=== PATIENT | male | born 1985 | race Caucasian/White ===

== ENCOUNTER 2019-09-28 15:47 | Emergency (ER) | payer SELFPAY ==
[~2019-09-28] VITALS: Ht 180 cm; Wt 106.8 kg
[2019-09-28] MEDS ORDERED: METF-478 PO (16:00)
[2019-09-28] MEDS ORDERED: ESOM20CA PO (16:00)
[2019-09-28] MEDS ORDERED: SULF-222 PO (16:15)
--- NOTE | 2019-09-28 16:15 | ED Integumentary General ---
General Chief Complaint: Skin/Wound Problems Stated Complaint: BOIL ON GENITALS/BUTTOCKS Nursing Triage Note: pt reports he has 2 "boils." 1 on right buttock et 1 in right gluteal fold. History of Present Illness Date Seen by Provider: Sep 28, 2019 Time Seen by Provider: 16:00 Initial Comments 34-year-old male presents for abscess to his right buttocks. He states the one on the medial aspect of the right buttocks has been present for approximately 3 weeks. Over the last 2-3 days he has noticed 1 on the lateral aspect. They both spontaneously drain at times. He has not had any treatment for either. He denies previous history of MRSA. He is moving here and has not established medical care. He is a type II diabetic and reports his glucose to be in the 90s to 150s. Timing/Duration: intermittent Severity: mild Possible Cause: no cause identified Associated Symptoms: change in skin texture Allergies and Home Medications Allergies Coded Allergies: Penicillins (Unverified Adverse Reaction, Unknown, hives, 09/28/19) Home Medications Esomeprazole Magnesium 20 Mg Capsule.dr, 20 MG PO DAILY, (Reported) Metformin HCl 500 Mg Tab.er.24, 500 MG PO DAILY, (Reported) Sulfamethoxazole/Trimethoprim 1 Each Tablet, 1 EACH PO BID Prescribed by: WHITNEY EDWARDS on 09/28/19 1615 Patient Home Medication List Home Medication List Reviewed: Yes Review of Systems Review of Systems Constitutional: no symptoms reported, see HPI Skin: see HPI, lesions All Other Systems Reviewed Negative Unless Noted: Yes Past Wbqkukx-Uoueuj-Rfjfiy Hx Past Med/Social Hx: Reviewed Nursing Past Med/Soc Hx Patient Social History Alcohol Use: Occasionally Uses Recreational Drug Use: No Smoking Status: Current Everyday Smoker Recent Foreign Travel: No Contact w/Someone Who Travel: No Recent Infectious Disease Expo: No Recent Hopitalizations: No Seasonal Allergies Seasonal Allergies: No Past Medical History Surgeries: Yes Adenoidectomy, Appendectomy, Tonsillectomy Respiratory: No Cardiac: No Neurological: No Genitourinary: No Gastrointestinal: Yes Gastroesophageal Reflux Musculoskeletal: Yes (right torn rotator cuff) Arthritis Endocrine: Yes Diabetes, Non-Insulin dep Physical Exam Vital Signs Vital Signs - First Documented 09/28/19 15:54 Temp 36.7 Pulse 105 Resp 16 B/P (MAP) 135/95 (108) Pulse Ox 97 O2 Delivery Room Air Capillary Refill : Less Than 3 Seconds General Appearance: WD/WN, no apparent distress Cardiovascular: normal peripheral pulses, regular rate, rhythm, no edema, no murmur Respiratory: chest non-tender, lungs clear, normal breath sounds Gastrointestinal: normal bowel sounds, non tender, soft Extremities: normal range of motion, non-tender, normal inspection Neurologic/Psychiatric: no motor/sensory deficits, alert, normal mood/affect, oriented x 3 Skin: normal color Skin Problem Location: other (right buttocks) Skin Problem Character: abscess (trace erythema, no warmth or drainage, trace induration no fluctuance, 1 x 1 cm area to lateral buttocks on the right and another similar abscess to the medial buttocks. ) Progress/Results/Core Measures Results/Orders Vital Signs/I&O 09/28/19 15:54 Temp 36.7 Pulse 105 Resp 16 B/P (MAP) 135/95 (108) Pulse Ox 97 O2 Delivery Room Air Blood Pressure Mean: 108 Departure Impression Primary Impression: Abscess Disposition: 01 HOME, SELF-CARE Condition: Improved Departure-Patient Inst. Decision time for Depature: 16:10 Referrals: NO,LOCAL PHYSICIAN (PCP/Family) Primary Care Physician Patient Instructions: Skin Abscess Add. Discharge Instructions: Keep area clean and dry, clean with soap and water. You may alternate between Tylenol 650 g and ibuprofen 600 mg every 4 hours for pain or fever. Take the antibiotics as directed. Establish care with a primary care provider. Follow-up in 2-3 days if symptoms are not improving or worsen with a primary care provider. Return to the emergency department for new, urgent health care needs. All discharge instructions reviewed with patient and/or family. Voiced understanding. Scripts Sulfamethoxazole/Trimethoprim (Sulfamethoxazole-Tmp Ds Tablet) 1 Each Tablet 1 EACH PO BID, #14 TAB 0 Refills Prov: WHITNEY EDWARDS 09/28/19 WHITNEY EDWARDS Sep 28, 2019 16:15
[2019-09-28 16:28] VITALS: BP 141/72
== END 2019-09-28 16:28 | disposition home or self-care (01) ==
LOC: ER 15:48
DX: L02.31 Cutaneous abscess of buttock (principal); K21.9 Gastro-esophageal reflux disease without esophagitis; E11.9 Type 2 diabetes mellitus without complications; F17.200 Nicotine dependence, unspecified, uncomplicated; Z88.0 Allergy status to penicillin; Z79.84 Long term (current) use of oral hypoglycemic drugs; Z90.49 Acquired absence of other specified parts of digestive tract; Z90.89 Acquired absence of other organs
CPT/HCPCS: 99282

== ENCOUNTER 2020-05-02 20:19 | Emergency (ER) | payer SELFPAY ==
[~2020-05-02] VITALS: Ht 180.3 cm; Wt 110.4 kg
[~2020-05-02 20:19] MED LIST: ESOM20CA PO; METF-478 PO; SULF-222 PO
--- OUTSIDE RECORDS SUMMARY | 2020-05-02 20:24 | XMS REPORT ---
Demographics Preferred Language Unknown Marital Status Unknown Shinto Affiliation Unknown Race Unknown Ethnic Group Unknown Author [facility] Address Unknown Phone Unavailable Allergies No Known Allergy Information Encounters No Known Encounters Immunizations No Known Immunizations Lab Results No Known Laboratory Results Medical Equipment No Known Medical Equipment Medications No Known Medication Information Treatment Plan No Treatment Plan Information Problems No Known Problems Procedures No Known Procedures Social History Social History Observation Description Date Sex Male SunJul 04 08:00:00 EDT 1984 Vital Signs No Known Vitals
--- OUTSIDE RECORDS SUMMARY | 2020-05-02 20:24 | XMS REPORT | Continuity of Care Document ---
Author Author [facility] Organization [facility] Address Unknown Phone Unavailable Allergies Active Description Code Type Severity Reaction Onset Reported/Identified Relationship to Patient Clinical Status Yes Penicillins [id number] Drug Aller gy Unknown hives 09/28/2019 Medications There is no data. Problems Date Dx Coded Attending Type Code Diagnosis Diagnosed By 10/02/2019 WHITNEY EDWARDS Ot E11.9 TYPE 2 DIABETES MELLITUS WITHOUT COMPLIC 10/02/2019 WHITNEY EDWARDS Ot F17.200 NICOTINE DEPENDENCE, UNSPECIFIED, UNCOMP 10/02/2019 WHITNEY EDWARDS Ot K21.9 GASTRO-ESOPHAGEAL REFLUX DISEASE WITHOUT 10/02/2019 WHITNEY EDWARDS Ot L02.31 CUTANEOUS ABSCESS OF BUTTOCK 10/02/2019 WHITNEY EDWARDSP Ot Z79.84 CIGARETTE PAPER TESTER (CURRENT) USE OF ORAL HYPOGLYC 10/02/2019 WHITNEY EDWARDS BUSINESS PROCESS ENGINEER Ot Z88.0 ALLERGY STATUS TO PENICILLIN 10/02/2019 GRACE WHITNEY BUSINESS PROCESS ENGINEER Ot Z90.49 ACQUIRED ABSENCE OF OTHER SPECIFIED PART 10/02/2019 WHITNEY EDWARDSP Ot Z90.89 ACQUIRED ABSENCE OF OTHER ORGANS Procedures There is no data. Results There is no data. Encounters ACCT No. Visit Date/Time Discharge Status Pt. Type Provider Facility Loc./Unit Complaint [id number] 02/12/2020 11:00:00 02/12/2020 23:59:5 9 CLS Outpatient TANIA STEELE [facility] [id number] 09/28/2019 15:48:00 020 16:28:00 DIS Outpatient WHITNEY EDWARDS a [facility] ER BOIL ON GENITALS/BUTTOC [place]
--- NOTE | 2020-05-02 20:36 | ED General ---
General Chief Complaint: Glucose Problems Stated Complaint: DIABETIC/BS 319/CRAMPS/FREQUENT URINATION Source of Information: Patient Exam Limitations: No Limitations History of Present Illness Date Seen by Provider: May 02, 2020 Time Seen by Provider: 20:35 Initial Comments To ER with a 2 week history of increased thirst, frequent urination, general malaise, cramping in his left leg. He is a known type II diabetic diagnosed 3 years ago. She is supposed to be on metformin 500 mg daily but hasn't taken it in a few weeks because he has been too busy. Timing/Duration: 2-3 Days Severity: Moderate Associated Systoms: Weakness Allergies and Home Medications Allergies Coded Allergies: Penicillins (Unverified Adverse Reaction, Unknown, hives, 09/28/19) Home Medications Cefuroxime Axetil 500 Mg Tablet, 500 MG PO BID Prescribed by: CATRACHITA WILLARD on 05/02/202101 Esomeprazole Magnesium 20 Mg Capsule.dr, 20 MG PO DAILY, (Reported) Metformin HCl 500 Mg Tab.er.24, 500 MG PO DAILY, (Reported) Sulfamethoxazole/Trimethoprim 1 Each Tablet, 1 EACH PO BID Prescribed by: WHITNEY EDWARDS on 09/28/19 1615 Patient Home Medication List Home Medication List Reviewed: Yes Review of Systems Review of Systems Constitutional: see HPI EENTM: see HPI Respiratory: no symptoms reported Cardiovascular: no symptoms reported Genitourinary: see HPI, other (polyuria/polydipsia) Musculoskeletal: no symptoms reported Skin: no symptoms reported Hematologic/Lymphatic: No Symptoms Reported Immunological/Allergic: no symptoms reported Past Bmyeadd-Mbupjx-Risrnl Hx Patient Social History Recent Foreign Travel: No Contact w/Someone Who Travel: No Recent Hopitalizations: No Seasonal Allergies Seasonal Allergies: No Past Medical History Surgeries: Yes Adenoidectomy, Appendectomy, Tonsillectomy Respiratory: No Cardiac: No Neurological: No Genitourinary: No Gastrointestinal: Yes Gastroesophageal Reflux Musculoskeletal: Yes (right torn rotator cuff) Arthritis Endocrine: Yes Diabetes, Non-Insulin dep Physical Exam Vital Signs Vital Signs - First Documented 05/02/20 05/02/20 20:20 22:07 Temp 36.5 Pulse 109 Resp 20 B/P (MAP) 142/101 (115) Pulse Ox 95 O2 Delivery Room Air Capillary Refill : Height, Weight, BMI Height: '" Weight: lbs. oz. kg; 32.00 BMI Method: General Appearance: No Apparent Distress, WD/WN Eyes: Bilateral Eye Normal Inspection, Bilateral Eye PERRL Neck: Full Range of Motion, Normal Inspection Respiratory: No Accessory Muscle Use, No Respiratory Distress Cardiovascular: Regular Rate, Rhythm, Normal Peripheral Pulses Gastrointestinal: Normal Bowel Sounds, Non Tender, Soft Extremity: Normal Capillary Refill, Normal Inspection Neurologic/Psychiatric: Alert, Oriented x3 Skin: Normal Color, Warm/Dry Progress/Results/Core Measures Suspected Sepsis SIRS Temperature: Pulse: Respiratory Rate: Laboratory Tests 05/02/20 20:30: White Blood Count 11.2H Blood Pressure / Mean: Laboratory Tests 05/02/20 20:30: Creatinine 1.09, Platelet Count 249, Total Bilirubin 0.9 Results/Orders Lab Results Laboratory Tests Test 05/02/20 20:25 05/02/20 20:30 05/02/20 20:33 Range/Units Urine Color DARK YELLOW Urine Clarity CLEAR Urine pH 5.0 5-9 Urine Specific [place] >=1.030 1.016-1.022 Urine Protein NEGATIVE NEGATIVE Urine Glucose (UA) 3+ H NEGATIVE Urine Ketones 1+ H NEGATIVE Urine Nitrite NEGATIVE NEGATIVE Urine Bilirubin 1+ H NEGATIVE Urine Urobilinogen 0.2 < = 1.0 MG/DL Urine Leukocyte Esterase NEGATIVE NEGATIVE Urine RBC (Auto) NEGATIVE NEGATIVE Urine RBC NONE /HPF Urine WBC 5-10 H /HPF Urine Squamous Epithelial Cells RARE /HPF Urine Crystals NONE /LPF Urine Bacteria TRACE /HPF Urine Casts PRESENT /LPF Urine Hyaline Casts 5-10 H /LPF Urine Mucus SMALL H /LPF Urine Culture Indicated YES White Blood Count 11.2 H 4.3-11.0 10^3/uL Red Blood Count 5.01 4.35-5.85 10^6/uL Hemoglobin 15.9 13.3-17.7 G/DL Hematocrit 44 40-54 % Mean Corpuscular Volume 87 80-99 FL Mean Corpuscular Hemoglobin 32 25-34 PG Mean Corpuscular Hemoglobin Concent 37 H 32-36 G/DL Red Cell Distribution Width 12.8 10.0-14.5 % Platelet Count 249 130-400 10^3/uL Mean Platelet Volume 11.0 H 7.4-10.4 FL Neutrophils (%) (Auto) 50 42-75 % Lymphocytes (%) (Auto) 40 12-44 % Monocytes (%) (Auto) 6 0-12 % Eosinophils (%) (Auto) 4 0-10 % Basophils (%) (Auto) 1 0-10 % Neutrophils # (Auto) 5.5 1.8-7.8 X 10^3 Lymphocytes # (Auto) 4.4 H 1.0-4.0 X 10^3 Monocytes # (Auto) 0.7 0.0-1.0 X 10^3 Eosinophils # (Auto) 0.5 H 0.0-0.3 10^3/uL Basophils # (Auto) 0.1 0.0-0.1 10^3/uL Sodium Level 136 135-145 MMOL/L Potassium Level 4.0 3.6-5.0 MMOL/L Chloride Level 99 98-107 MMOL/L Carbon Dioxide Level 22 21-32 MMOL/L Anion Gap 15 H 5-14 MMOL/L Blood Urea Nitrogen 11 7-18 MG/DL Creatinine 1.09 0.60-1.30 MG/DL Estimat Glomerular Filtration Rate > 60 BUN/Creatinine Ratio 10 Glucose Level 340 H 70-105 MG/DL Calcium Level 9.5 8.5-10.1 MG/DL Corrected Calcium 8.5-10.1 MG/DL Total Bilirubin 0.9 0.1-1.0 MG/DL Aspartate Amino Transf (AST/SGOT) 32 5-34 U/L Alanine Aminotransferase (ALT/SGPT) 39 0-55 U/L Alkaline Phosphatase 69 40-136 U/L Total Protein 8.5 H 6.4-8.2 GM/DL Albumin 4.8 H 3.2-4.5 GM/DL Beta-Hydroxybutyrate (Chem panel) 0.88 H 0.00-0.27 MMOL/L Glucometer 349 H 70-110 MG/DL My Orders Orders - CATRACHITA WILLARD SERVICE REPRESENTATIVE Beta Hydroxybutyrate (05/02/20 20:33) Cbc With Automated Diff (05/02/20 20:33) Comprehensive Metabolic Panel (05/02/20 20:33) Ua Culture If Indicated (05/02/20 20:33) Ed Iv/Invasive Line Start (05/02/20 20:33) Lactated Ringers (Lr 1000 Ml Iv Solution (05/02/20 20:45) Lactated Ringers (Lr 1000 Ml Iv Solution (05/02/20 20:45) Urine Culture (05/02/20 20:25) Insulin Determir (Per Unit) (Levemir (Pe (05/02/20 21:00) Ceftriaxone For Iv Use (Rocephin For I (05/02/20 21:00) Vital Signs/I&O 05/03/20 00:00 Intake Total 2009 ml Balance 2009 ml Capillary Refill : Departure Impression Primary Impression: Uncontrolled diabetes mellitus Qualified Codes: E11.65 - Type 2 diabetes mellitus with hyperglycemia Additional Impression: UTI (urinary tract infection) Qualified Codes: N30.00 - Acute cystitis without hematuria Disposition: HOME, SELF-CARE Condition: Stable Departure-Patient Inst. Decision time for Depature: 21:00 Referrals: [facility] (PCP) Primary Care Physician TANIA STEELE (Family) Primary Care Physician Patient Instructions: Diabetes Type 2 (DC) Add. Discharge Instructions: 1. Increase your fluid intake 2. Antibiotics as directed. Very important to take your metformin. All discharge instructions reviewed with patient and/or family. Voiced understanding. Scripts Cefuroxime Axetil (Cefuroxime) 500 Mg Tablet 500 MG PO BID, #14 TAB Prov: CATRACHITA WILLARD APRN 05/02/20 CATRACHITA WILLARD APRN May 02, 2020 20:36
[2020-05-02 20:40] LABS: BASOPHILS # (AUTO) 0.1 10^3/uL (0.0-0.1); BASOPHILS % (AUTO) 1 % (0-10); EOSINOPHILS # (AUTO) 0.5 10^3/uL (0.0-0.3); EOSINOPHILS % (AUTO) 4 % (0-10); HEMATOCRIT 44 % (40-54); HEMOGLOBIN 15.9 G/DL (13.3-17.7); LYMPHOCYTES # (AUTO) 4.4 X 10^3 (1.0-4.0); LYMPHOCYTES % (AUTO) 40 % (12-44); MEAN CORPUSCULAR HEMOGLOBIN 32 PG (25-34); MEAN CORPUSCULAR HGB CONC 37 G/DL (32-36); MEAN CORPUSCULAR VOLUME 87 FL (80-99); MONOCYTES # (AUTO) 0.7 X 10^3 (0.0-1.0); MONOCYTES % (AUTO) 6 % (0-12); NEUTROPHILS # (AUTO) 5.5 X 10^3 (1.8-7.8); NEUTROPHILS % (AUTO) 50 % (42-75); PLATELET COUNT 249 10^3/uL (130-400); RED CELL DISTRIBUTION WIDTH 12.8 % (10.0-14.5); WHITE BLOOD COUNT 11.2 10^3/uL (4.3-11.0)
[2020-05-02 20:40] LABS: CLARITY,URINE CLEAR; COLOR,URINE DARK YELLOW; GLUCOSE, URINE (UA) 3+ (NEGATIVE); KETONES,URINE 1+ (NEGATIVE); LEUKOCYTE ESTERASE ,URINE NEGATIVE (NEGATIVE); NITRITE,URINE NEGATIVE (NEGATIVE); PROTEIN,URINE NEGATIVE (NEGATIVE)
[2020-05-02 20:45] LABS: BILIRUBIN,URINE 1+ (NEGATIVE)
[2020-05-02] MEDS ORDERED: LACTATED RINGERS 1,000 ML IV SCH ×2 (20:45)
[2020-05-02 20:48] LABS: BACTERIA,URINE TRACE /HPF; SQUAMOUS EPITHELIAL CELL,UR RARE /HPF
[2020-05-02 20:52] LABS: ALBUMIN 4.8 GM/DL (3.2-4.5); CHLORIDE 99 MMOL/L (98-107); SODIUM 136 MMOL/L (135-145)
[2020-05-02 20:53] LABS: CALCIUM 9.5 MG/DL (8.5-10.1)
[2020-05-02 20:54] LABS: GLUCOSE 340 MG/DL (70-105); TOTAL PROTEIN 8.5 GM/DL (6.4-8.2)
[2020-05-02 20:55] LABS: CARBON DIOXIDE 22 MMOL/L (21-32)
[2020-05-02 20:56] LABS: BILIRUBIN,TOTAL 0.9 MG/DL (0.1-1.0)
[2020-05-02 20:57] LABS: ALKALINE PHOSPHATASE 69 U/L (40-136)
[2020-05-02 20:58] LABS: CREATININE SERUM 1.09 MG/DL (0.60-1.30); GFR ESTIMATED > 60
[2020-05-02 20:59] LABS: BUN/CREATININE RATIO 10
[2020-05-02] MEDS ORDERED: cefTRIAXone FOR IV USE 1,000 MG in WATER (STERILE) FOR INJECTION 10 ML IV ONE (21:00)
[2020-05-02 21:01] LABS: ALANINE AMINOTRANSFERASE 39 U/L (0-55)
[2020-05-02] MEDS ORDERED: CEFU500T63 PO (21:02)
[2020-05-02 22:07] VITALS: BP 147/94
== END 2020-05-02 22:07 | disposition home or self-care (01) ==
LOC: EDUNIT# 20:19 → ER 20:20
DX: E11.65 Type 2 diabetes mellitus with hyperglycemia (principal); N39.0 Urinary tract infection, site not specified; K21.9 Gastro-esophageal reflux disease without esophagitis; Z79.84 Long term (current) use of oral hypoglycemic drugs
CPT/HCPCS: 36415; 80053; 81000; 82010; 82962; 85025; 87088

== ENCOUNTER 2020-05-12 13:39 | Emergency (ER) | payer SELFPAY ==
[~2020-05-12] VITALS: Ht 180 cm; Wt 102.1 kg
[~2020-05-12 13:39] MED LIST changes: +CEFU500T63 PO
[2020-05-12 13:53] VITALS: BP 129/87
== END 2020-05-12 14:01 | disposition left against medical advice (07) ==
LOC: EDUNIT# 13:39 → ER 13:42
DX: R73.9 Hyperglycemia, unspecified (principal)